=== PATIENT | female | born 1930 | race Caucasian/White ===

== ENCOUNTER 2018-01-12 14:54 | Inpatient (IN) | payer OTHER, MEDICARE ==
[~2018-01-12] VITALS: Ht 162.6 cm; Wt 64.9 kg
[2018-01-12 14:54] VITALS: BP_SYST 144
[~2018-01-12 14:54] MED LIST: ASPI-989 PO; CIPR-172 PO; DIGO125T79 PO; FAMO20TA8 PO; FERR-57 PO; GLYB2.5T4 PO; LEVO25TA7 PO; LIP10 PO; METO-442 PO; MULT-1164 PO; PRO40 PO
[2018-01-12] MEDS ORDERED: NS 500 ML IV ONE (15:30)
[2018-01-12 15:52] LABS: BASOPHILS # (AUTO) 0.1 K/uL (0.0-0.2); BASOPHILS % (AUTO) 0.9 % (0.0-2.0); EOSINOPHILS % (AUTO) 0.5 % (0.0-4.0); HEMATOCRIT 44.2 % (36-48); HEMOGLOBIN 14.9 g/dL (12.0-16.0); LYMPHOCYTES # (AUTO) 1.3 K/uL (1.0-5.5); LYMPHOCYTES % (AUTO) 14.4 % (20.5-51.5); MEAN CORPUSCULAR HEMOGLOBIN 32 pg (27-31); MEAN CORPUSCULAR HGB CONC 34 % (32-36); MEAN CORPUSCULAR VOLUME 96 fL (79.0-98.0); MONOCYTES # (AUTO) 0.7 K/uL (0.0-1.0); MONOCYTES % (AUTO) 7.5 % (1.7-9.3); NEUTROPHILS # (AUTO) 6.7 K/uL (1.8-7.7); NEUTROPHILS % (AUTO) 76.7 % (40.0-70.0); PLATELET COUNT (AUTO) 145 K/uL (130-430); RED BLOOD CELL COUNT(AUTO) 4.62 MIL/uL (4.2-6.2); RED CELL DISTRIBUTION WIDTH 12.8 % (9.0-15.0); WHITE BLOOD COUNT (AUTO) 8.8 K/uL (4.8-10.8)
[2018-01-12 16:03] LABS: ANION GAP 9 (5-15); CALCIUM 9.4 mg/dL (8.4-11.0); CHLORIDE 99 mmol/L (98-107); CREATININE 0.97 mg/dL (0.55-1.30); GLUCOSE 162 mg/dL (70-99); POTASSIUM 5.5 mmol/L (3.5-5.1); SODIUM SERUM 132 mmol/L (136-145); UREA NITROGEN, BLOOD 18 mg/dL (8-21)
[2018-01-12 16:16] LABS: ALANINE AMINOTRANSFERASE 39 U/L (12-78); ALBUMIN 2.8 g/dL (3.4-4.8); ASPARTATE AMINOTRANSFERASE 71 U/L (10-37); DIGOXIN 1.3 ng/mL (0.80-2.00); TOTAL BILIRUBIN 0.7 mg/dL (0.0-1.0)
[2018-01-12] MEDS ORDERED: MEMA10TA PO (16:32)
[2018-01-12] MEDS ORDERED: VIT1CAPS46 PO (16:32)
[2018-01-12 17:07] LABS: BILIRUBIN,URINE NEGATIVE (NEGATIVE); BLOOD, URINE NEGATIVE (NEGATIVE); CLARITY/URINE CLEAR (CLEAR); COLOR,URINE YELLOW (YELLOW); GLUCOSE,URINE NEGATIVE (NEGATIVE); KETONES,URINE NEGATIVE (NEGATIVE); LEUKOCYTE ESTERASE ,URINE TRACE (NEGATIVE); NITRITE, URINE NEGATIVE (NEGATIVE); PH,URINE 6.5 (5.0-8.0); PROTEIN URINE TRACE (NEGATIVE)
[2018-01-12 17:15] LABS: BACTERIA,URINE MODERATE /HPF (None Seen); RBC,URINE 0-3 /HPF (0-3)
[2018-01-12 17:32] VITALS: BP_SYST 143
[2018-01-12 18:13] VITALS: BP_SYST 143
[2018-01-12] MEDS: NACL 0.9% 1,000 ML IV SCH (18:50)
[2018-01-12] MEDS: METOPROLOL TARTRATE 50 MG TABLET PO SCH (21:00)
[2018-01-12] MEDS: ATORVASTATIN 10 MG TABLET PO SCH (22:04)
[2018-01-12] MEDS: MEMANTINE HCL 5 MG TABLET PO SCH (22:04)
[2018-01-12] MEDS: FERROUS SULFATE 325 MG TABLET.DR PO SCH (22:04)
[2018-01-12 22:45] VITALS: BP_SYST 145
[2018-01-12] MEDS ORDERED: HYDROcodone/ACETAMIN 10-325 MG TAB PO PRN (22:45)
[2018-01-12] MEDS ORDERED: ONDANSETRON HCL 4 MG/2 ML VIAL IVP PRN (22:45)
[2018-01-12] MEDS ORDERED: HYDROcodone/ACETAMIN 5-325 MG TAB (NORCO/ VICODIN) PO PRN (22:45)
[2018-01-12] MEDS ORDERED: ACETAMINOPHEN 325 MG TABLET PO PRN (22:45)
[2018-01-13 00:16] VITALS: BP_SYST 157
[2018-01-13] MEDS: LORazepam 2 MG/ML VIAL IVP PRN ×2 (00:17→23:37)
[2018-01-13 04:00] VITALS: BP_SYST 148
[2018-01-13] MEDS: NACL 0.9% 1,000 ML IV SCH ×2 (05:33→15:06)
[2018-01-13] MEDS ORDERED: NORMAL SALINE 5 ML DISP.SYRIN IVF SCH (06:00)
[2018-01-13] MEDS: LEVOTHYROXINE SODIUM 0.025 MG TABLET PO SCH ×2 (06:42→06:45)
[2018-01-13] MEDS: NORMAL SALINE 5 ML DISP.SYRIN IVF SCH ×3 (06:42→21:49)
[2018-01-13 06:46] LABS: ANION GAP 8 (5-15); BASOPHILS % (AUTO) 0.5 % (0.0-2.0); CALCIUM 8.6 mg/dL (8.4-11.0); CHLORIDE 103 mmol/L (98-107); CREATININE 0.76 mg/dL (0.55-1.30); EOSINOPHILS # (AUTO) 0.1 K/uL (0.0-0.4); GLUCOSE 114 mg/dL (70-99); HEMATOCRIT 43.2 % (36-48); HEMOGLOBIN 14.5 g/dL (12.0-16.0); LYMPHOCYTES # (AUTO) 1.6 K/uL (1.0-5.5); LYMPHOCYTES % (AUTO) 22.6 % (20.5-51.5); MEAN CORPUSCULAR HEMOGLOBIN 32 pg (27-31); MEAN CORPUSCULAR HGB CONC 34 % (32-36); MEAN CORPUSCULAR VOLUME 96 fL (79.0-98.0); MONOCYTES # (AUTO) 0.7 K/uL (0.0-1.0); MONOCYTES % (AUTO) 9.3 % (1.7-9.3); NEUTROPHILS # (AUTO) 4.8 K/uL (1.8-7.7); NEUTROPHILS % (AUTO) 66.6 % (40.0-70.0); PLATELET COUNT (AUTO) 114 K/uL (130-430); RED BLOOD CELL COUNT(AUTO) 4.51 MIL/uL (4.2-6.2); RED CELL DISTRIBUTION WIDTH 12.7 % (9.0-15.0); SODIUM SERUM 136 mmol/L (136-145); UREA NITROGEN, BLOOD 13 mg/dL (8-21); WHITE BLOOD COUNT (AUTO) 7.2 K/uL (4.8-10.8)
[2018-01-13 06:53] LABS: PHOSPHORUS 3.4 mg/dL (2.7-4.5)
[2018-01-13 08:14] VITALS: BP_SYST 155
[2018-01-13] MEDS ORDERED: glyBURIDE 2.5 MG TABLET PO SCH (09:00)
[2018-01-13] MEDS: ASPIRIN 325 MG TABLET PO SCH (09:31)
[2018-01-13] MEDS: MEMANTINE HCL 5 MG TABLET PO SCH ×2 (09:31→21:48)
[2018-01-13] MEDS: METOPROLOL TARTRATE 50 MG TABLET PO SCH ×2 (09:32→21:48)
[2018-01-13] MEDS: DIGOXIN 0.125 MG TABLET PO SCH (09:32)
[2018-01-13] MEDS: FAMOTIDINE 20 MG TABLET PO SCH (09:32)
[2018-01-13] MEDS: FERROUS SULFATE 325 MG TABLET.DR PO SCH ×2 (09:32→21:48)
[2018-01-13] MEDS: MULTIVITS,CA,MINERALS/IRON/FA 1 TABLET PO SCH (09:32)
[2018-01-13] MEDS: PANTOPRAZOLE SODIUM 40 MG TAB PO SCH (09:32)
[2018-01-13] MEDS ORDERED: glyBURIDE 5 MG TABLET PO SCH (10:05)
[2018-01-13] MEDS: glyBURIDE 5 MG TABLET PO SCH (10:57)
[2018-01-13 13:18] VITALS: BP_SYST 154
[2018-01-13 16:42] VITALS: BP_SYST 146
[2018-01-13 20:15] VITALS: BP_SYST 155
[2018-01-13] MEDS: ATORVASTATIN 10 MG TABLET PO SCH (21:48)
[2018-01-14 00:38] VITALS: BP_SYST 143
[2018-01-14] MEDS: NACL 0.9% 1,000 ML IV SCH ×2 (01:36→09:15)
[2018-01-14] MEDS: LEVOTHYROXINE SODIUM 0.025 MG TABLET PO SCH (06:15)
[2018-01-14 06:23] VITALS: BP_SYST 142
[2018-01-14] MEDS: NORMAL SALINE 5 ML DISP.SYRIN IVF SCH ×3 (06:23→22:00)
[2018-01-14 06:39] LABS: BASOPHILS % (AUTO) 0.3 % (0.0-2.0); EOSINOPHILS # (AUTO) 0.1 K/uL (0.0-0.4); EOSINOPHILS % (AUTO) 1.4 % (0.0-4.0); HEMATOCRIT 42.2 % (36-48); HEMOGLOBIN 14.5 g/dL (12.0-16.0); LYMPHOCYTES # (AUTO) 1.3 K/uL (1.0-5.5); LYMPHOCYTES % (AUTO) 15.7 % (20.5-51.5); MEAN CORPUSCULAR HEMOGLOBIN 33 pg (27-31); MEAN CORPUSCULAR HGB CONC 34 % (32-36); MEAN CORPUSCULAR VOLUME 95 fL (79.0-98.0); MONOCYTES # (AUTO) 0.7 K/uL (0.0-1.0); MONOCYTES % (AUTO) 8.3 % (1.7-9.3); NEUTROPHILS # (AUTO) 6.2 K/uL (1.8-7.7); NEUTROPHILS % (AUTO) 74.3 % (40.0-70.0); PLATELET COUNT (AUTO) 129 K/uL (130-430); RED BLOOD CELL COUNT(AUTO) 4.44 MIL/uL (4.2-6.2); RED CELL DISTRIBUTION WIDTH 12.6 % (9.0-15.0); WHITE BLOOD COUNT (AUTO) 8.3 K/uL (4.8-10.8)
[2018-01-14 06:48] LABS: ANION GAP 9 (5-15); CALCIUM 8.4 mg/dL (8.4-11.0); CHLORIDE 104 mmol/L (98-107); CREATININE 0.78 mg/dL (0.55-1.30); GLUCOSE 121 mg/dL (70-99); POTASSIUM 4.1 mmol/L (3.5-5.1); SODIUM SERUM 136 mmol/L (136-145); UREA NITROGEN, BLOOD 13 mg/dL (8-21)
[2018-01-14 08:00] VITALS: BP_SYST 165
[2018-01-14] MEDS: ASPIRIN 325 MG TABLET PO SCH (09:27)
[2018-01-14] MEDS: glyBURIDE 5 MG TABLET PO SCH (09:27)
[2018-01-14] MEDS: MEMANTINE HCL 5 MG TABLET PO SCH ×2 (09:28→22:04)
[2018-01-14] MEDS: FAMOTIDINE 20 MG TABLET PO SCH (09:28)
[2018-01-14] MEDS: PANTOPRAZOLE SODIUM 40 MG TAB PO SCH (09:28)
[2018-01-14] MEDS: FERROUS SULFATE 325 MG TABLET.DR PO SCH ×2 (09:28→22:04)
[2018-01-14] MEDS: DIGOXIN 0.125 MG TABLET PO SCH (09:29)
[2018-01-14] MEDS: MULTIVITS,CA,MINERALS/IRON/FA 1 TABLET PO SCH (09:29)
[2018-01-14] MEDS: METOPROLOL TARTRATE 50 MG TABLET PO SCH ×2 (09:30→22:05)
[2018-01-14 12:50] VITALS: BP_SYST 141
[2018-01-14] MEDS: LORazepam 2 MG/ML VIAL IVP PRN (15:24)
[2018-01-14] MEDS ORDERED: DIPHENHYDRAMINE HCL 50 MG CAPSULE PO PRN (16:30)
[2018-01-14 16:45] VITALS: BP_SYST 150
[2018-01-14 19:30] VITALS: BP_SYST 154
[2018-01-14] MEDS: ATORVASTATIN 10 MG TABLET PO SCH (22:04)
[2018-01-15 00:40] VITALS: BP_SYST 151
[2018-01-15] MEDS: NORMAL SALINE 5 ML DISP.SYRIN IVF SCH ×2 (06:34→14:00)
[2018-01-15] MEDS: LEVOTHYROXINE SODIUM 0.025 MG TABLET PO SCH (06:35)
[2018-01-15 06:36] LABS: BASOPHILS % (AUTO) 0.5 % (0.0-2.0); EOSINOPHILS # (AUTO) 0.2 K/uL (0.0-0.4); EOSINOPHILS % (AUTO) 1.7 % (0.0-4.0); HEMATOCRIT 45.1 % (36-48); HEMOGLOBIN 15.1 g/dL (12.0-16.0); LYMPHOCYTES # (AUTO) 1.8 K/uL (1.0-5.5); LYMPHOCYTES % (AUTO) 20.6 % (20.5-51.5); MEAN CORPUSCULAR HEMOGLOBIN 32 pg (27-31); MEAN CORPUSCULAR HGB CONC 34 % (32-36); MEAN CORPUSCULAR VOLUME 96 fL (79.0-98.0); MONOCYTES # (AUTO) 0.9 K/uL (0.0-1.0); MONOCYTES % (AUTO) 10.5 % (1.7-9.3); NEUTROPHILS % (AUTO) 66.7 % (40.0-70.0); PLATELET COUNT (AUTO) 135 K/uL (130-430); RED CELL DISTRIBUTION WIDTH 12.7 % (9.0-15.0); WHITE BLOOD COUNT (AUTO) 8.9 K/uL (4.8-10.8)
[2018-01-15 06:52] LABS: ANION GAP 9 (5-15); CHLORIDE 100 mmol/L (98-107); CREATININE 0.78 mg/dL (0.55-1.30); GLUCOSE 112 mg/dL (70-99); SODIUM SERUM 133 mmol/L (136-145); UREA NITROGEN, BLOOD 12 mg/dL (8-21)
[2018-01-15 06:57] LABS: POTASSIUM 4.1 mmol/L (3.5-5.1)
[2018-01-15 08:00] VITALS: BP_SYST 165
[2018-01-15] MEDS: ASPIRIN 325 MG TABLET PO SCH (08:14)
[2018-01-15] MEDS: MULTIVITS,CA,MINERALS/IRON/FA 1 TABLET PO SCH (08:15)
[2018-01-15] MEDS: MEMANTINE HCL 5 MG TABLET PO SCH (08:15)
[2018-01-15] MEDS: glyBURIDE 5 MG TABLET PO SCH (08:15)
[2018-01-15] MEDS: METOPROLOL TARTRATE 50 MG TABLET PO SCH (08:16)
[2018-01-15] MEDS: PANTOPRAZOLE SODIUM 40 MG TAB PO SCH (08:17)
[2018-01-15] MEDS: FERROUS SULFATE 325 MG TABLET.DR PO SCH (08:17)
[2018-01-15] MEDS: FAMOTIDINE 20 MG TABLET PO SCH (08:17)
[2018-01-15] MEDS: DIGOXIN 0.125 MG TABLET PO SCH (09:00)
[2018-01-15 11:11] VITALS: BP_SYST 145
[2018-01-15 15:15] VITALS: BP_SYST 153
[2018-01-15 17:45] VITALS: BP_SYST 154
== END 2018-01-15 19:30 | DRG 871 ==
LOC: SED 14:54 → STU 17:02
PROVIDERS: ADMIT Preventive Medicine Preventive Medicine/Occupational Environmental Medicine; ATTEND Preventive Medicine Preventive Medicine/Occupational Environmental Medicine
DX: A41.9 Sepsis, unspecified organism (principal); G93.41 Metabolic encephalopathy; N39.0 Urinary tract infection, site not specified; E87.1 Hypo-osmolality and hyponatremia; I42.9 Cardiomyopathy, unspecified; I10 Essential (primary) hypertension; E03.9 Hypothyroidism, unspecified; E11.65 Type 2 diabetes mellitus with hyperglycemia; E88.09 Other disorders of plasma-protein metabolism, not elsewhere classified; F03.90 Unspecified dementia, unspecified severity, without behavioral disturbance, psychotic disturbance, mood disturbance, and anxiety; G31.9 Degenerative disease of nervous system, unspecified; I48.91 Unspecified atrial fibrillation; G89.29 Other chronic pain; M25.512 Pain in left shoulder; E87.5 Hyperkalemia; I25.10 Atherosclerotic heart disease of native coronary artery without angina pectoris; Z86.73 Personal history of transient ischemic attack (TIA), and cerebral infarction without residual deficits; Z95.0 Presence of cardiac pacemaker; Z90.49 Acquired absence of other specified parts of digestive tract; Z79.899 Other long term (current) drug therapy; Z79.82 Long term (current) use of aspirin; Z79.84 Long term (current) use of oral hypoglycemic drugs; I25.2 Old myocardial infarction
CPT/HCPCS: 36415; 70450-TC; 71045; 80048; 80053; 80162-TC; 81000-TC; 83735-TC; 84100-TC; 84484; 85025; 87086; 93005; 95816; 96360; 97110-GP; 97116-GP; 97530-GP; 99291; J2060; J7030; Q0163

== ENCOUNTER 2018-01-19 09:40 | Emergency (ER) | payer OTHER, MEDICARE ==
[~2018-01-19] VITALS: Ht 162.6 cm; Wt 67.1 kg
[2018-01-19 09:40] VITALS: BP_SYST 156
[~2018-01-19 09:40] MED LIST changes: -CIPR-172 PO; +MEMA10TA PO; +VIT1CAPS46 PO
[2018-01-19 11:35] VITALS: BP_SYST 141
== END 2018-01-19 11:35 | disposition home or self-care (01) ==
LOC: SED 09:40
DX: Z00.01 Encounter for general adult medical examination with abnormal findings (principal); E11.9 Type 2 diabetes mellitus without complications; I10 Essential (primary) hypertension; E03.9 Hypothyroidism, unspecified; F03.90 Unspecified dementia, unspecified severity, without behavioral disturbance, psychotic disturbance, mood disturbance, and anxiety; Z95.0 Presence of cardiac pacemaker; Z79.899 Other long term (current) drug therapy
CPT/HCPCS: 99283